=== PATIENT | male | born 1970 | race Caucasian/White ===

== ENCOUNTER 2017-02-13 08:02 | Emergency (ER) | payer OTHER ==
--- NOTE | 2017-02-13 08:17 | C.PDOC ---
History Of Present Illness Patient is 47 y/o male with prior visits for substance abuse, presenting for altered mental status. Patient brought to ED for evaluation by EMS after being found passed out in the backyard of his senior living. No further history was able to be obtained. Time Seen by Provider: 02/13/17 08:06 Chief Complaint (Nursing): Substance Abuse History Per: EMS History/Exam Limitations: clinical condition Onset/Duration Of Symptoms: Mins Current Symptoms Are (Timing): Still Present Suicide/Self Injury Attempted (Context): None Modifying Factor(s): Alcohol (patient smells of alcohol ) Involuntary Hold By: None Recent travel outside of the [place]: No Additional History Per: Prior Records Past Medical History Reviewed: Historical Data, Nursing Documentation, Vital Signs Vital Signs: Last Vital Signs Temp 98.3 F 02/13/17 16:18 Pulse 101 H 02/13/17 16:18 Resp 14 02/13/17 16:18 BP 96/62 L 02/13/17 16:18 Pulse Ox 98 02/13/17 16:18 - Medical History PMH: Arthritis (Left Arm), COPD, Hepatitis, HTN, Hyperthyroidism, Schizophrenia Family History: States: Unknown Family Hx - Social History Hx Tobacco Use: Yes Hx Alcohol Use: Yes Hx Substance Use: No (denies) - Immunization History Hx Tetanus Toxoid Vaccination: No Hx Influenza Vaccination: No Hx Pneumococcal Vaccination: No Review Of Systems Review Of Systems: ROS cannot be obtained secondary to pt's inabilty to answer questions. Physical Exam - Physical Exam Appears: Non-toxic, No Acute Distress, Other (Resting and sleeping comfortably. Patient appears disheveled and strong smell of alcohol. ) Skin: Warm, Dry Head: Atraumatic Eye(s): bilateral: Normal Inspection Oral Mucosa: Moist Neck: Supple Chest: Symmetrical, No Deformity Cardiovascular: Rhythm Regular, No Murmur Respiratory: No Rales, No Rhonchi, No Wheezing, Other (Clear to auscultation bilaterally ) Gastrointestinal/Abdominal: Soft, No Tenderness, No Distention, No Guarding, No Rebound Extremity: Other (amputation to R lower extremity. normal ROM) Neurological/Psych: Other (Patient makes sounds and open eyes to sternal rub. ) ED Course And Treatment - Laboratory Results Result Diagrams: 02/13/17 09:44 02/13/17 09:44 - Radiology CXR: Viewed By Me, Read By Radiologist CXR Interpretation: Yes: Other (Mild pulmonary venous congestion. No focal consolidation.) - CT Scan/US CT HEAD WITHOUT CONTRAST Other Rad Studies (CT/US): Read By Radiologist, Radiology Report Reviewed CT/US Interpretation: FINDINGS: HEMORRHAGE: No intracranial hemorrhage. BRAIN : Isaacs-white matter differentiation is preserved. There is no mass, mass effect or abnormal extra-axial fluid collection. VENTRICLES: The ventricles are normal in size, shape and configuration. CALVARIUM: There is no calvarial fracture or extracranial soft tissue swelling. PARANASAL SINUSES: Predominantly clear. MASTOID AIR CELLS: Predominantly clear. OTHER FINDINGS: None. IMPRESSION: No acute intracranial abnormality. CT Cervical Spine without contrast Other Rad Studies (CT/US): Read By Radiologist, Radiology Report Reviewed CT/US Interpretation: FINDINGS: VERTEBRAE: There is straightening of the cervical spine with loss of normal cervical lordosis. Vertebral alignment is normal. Vertebral height is maintained. There is no acute fracture or traumatic spondylolisthesis. The craniocervical junction is normal. The atlantoaxial joint is normal. DISCS/SPINAL CANAL/NEURAL FORAMINA: There is mild multilevel degenerative disc disease due to combination of disc osteophyte complexes, uncovertebral joint hypertrophy and mild multilevel facet arthropathy , worse at C5-6 with mild right neural foraminal stenosis. No spinal canal stenosis. PARASPINAL SOFT TISSUES: There is no prevertebral soft tissue thickening. The paraspinous soft tissues are normal. OTHER FINDINGS: None. IMPRESSION: No acute fracture or traumatic anterior listhesis. Progress Note: Cervical Spine CT, Head CT, EKG, CXR, and labs were ordered. Medical Decision Making Medical Decision Making: Patient presenting with altered mental status. Likely alcohol abuse, but will get CT head, CT c-spine to r/o intracranial injury. WIll get labs, continually monitor and reeval 10:27AM Alcohol elevated to 416. Other labs grossly normal. EKG shows NSR at 77bpm with normal intervals and no ST changes. Imaging negative for acute process. Will monitor for clinical sobriety 5:49PM Patient is now AAox3. He is ambulating around the ED without issue and tolerating po. He admits to alcohol use. He reports that he wants to go back to his senior living. snf personal came and took patient home. Disposition - Disposition Disposition: HOME/ ROUTINE Disposition Time: 17:49 Condition: GOOD Additional Instructions: Decrease alcohol use. Return to ED if condition worsens. Follow-up with PMD Forms: [employer] (Upper Sorbian) - Clinical Impression Clinical Impression: Alcohol abuse - Scribe Statement The provider has reviewed the documentation as recorded by the Scribe Maryan Roy All medical record entries made by the Michaelibe were at my direction and personally dictated by me. I have reviewed the chart and agree that the record accurately reflects my personal performance of the history, physical exam, medical decision making, and the department course for this patient. I have also personally directed, reviewed, and agree with the discharge instructions and disposition.
--- NOTE | 2017-02-13 08:53 | RAD ---
HISTORY: altered mental status COMPARISON: 01/23/2015. FINDINGS: LUNGS: There is mild pulmonary venous congestion. PLEURA: No significant pleural effusion identified, no pneumothorax apparent. CARDIOVASCULAR: Normal. OSSEOUS STRUCTURES: No significant abnormalities. VISUALIZED UPPER ABDOMEN: Normal. OTHER FINDINGS: None. IMPRESSION: Mild pulmonary venous congestion. No focal consolidation.
--- NOTE | 2017-02-13 09:03 | CT ---
PROCEDURE: CT HEAD WITHOUT CONTRAST. HISTORY: Altered mental status COMPARISON: 05/04/2016. TECHNIQUE: Axial computed tomography images were obtained through the head/brain without intravenous contrast. Radiation dose: Total exam DLP = 1029.49 mGy-cm. This CT exam was performed using one or more of the following dose reduction techniques: Automated exposure control, adjustment of the mA and/or kV according to patient size, and/or use of iterative reconstruction technique. FINDINGS: HEMORRHAGE: No intracranial hemorrhage. BRAIN: Isaacs-white matter differentiation is preserved. There is no mass, mass effect or abnormal extra-axial fluid collection. VENTRICLES: The ventricles are normal in size, shape and configuration. CALVARIUM: There is no calvarial fracture or extracranial soft tissue swelling. PARANASAL SINUSES: Predominantly clear. MASTOID AIR CELLS: Predominantly clear. OTHER FINDINGS: None. IMPRESSION: No acute intracranial abnormality.
--- NOTE | 2017-02-13 09:10 | CT ---
PROCEDURE: CT Cervical Spine without contrast HISTORY: Found down COMPARISON: None available. TECHNIQUE: Axial computed tomography images were obtained of the cervical spine without the use of intravenous contrast. Coronal and sagittal reformatted images were created and reviewed. Radiation dose: Total exam DLP = 529.58 mGy-cm. This CT exam was performed using one or more of the following dose reduction techniques: Automated exposure control, adjustment of the mA and/or kV according to patient size, and/or use of iterative reconstruction technique. FINDINGS: VERTEBRAE: There is straightening of the cervical spine with loss of normal cervical lordosis. Vertebral alignment is normal. Vertebral height is maintained. There is no acute fracture or traumatic spondylolisthesis. The craniocervical junction is normal. The atlantoaxial joint is normal. DISCS/SPINAL CANAL/NEURAL FORAMINA: There is mild multilevel degenerative disc disease due to combination of disc osteophyte complexes, uncovertebral joint hypertrophy and mild multilevel facet arthropathy, worse at C5-6 with mild right neural foraminal stenosis. No spinal canal stenosis. PARASPINAL SOFT TISSUES: There is no prevertebral soft tissue thickening. The paraspinous soft tissues are normal. OTHER FINDINGS: None. IMPRESSION: No acute fracture or traumatic anterior listhesis.
[2017-02-13 09:45] LABS: URINE BILIRUBIN NEGATIVE (NEGATIVE); URINE BLOOD NEGATIVE (NEGATIVE); URINE COLOR Straw (YELLOW); URINE GLUCOSE (UA) NORMAL (Normal); URINE KETONE NEGATIVE (NEGATIVE); URINE LEUKOCYTE ESTERASE NEG Leu/uL (Negative); URINE PROTEIN NEGATIVE (NEGATIVE); URINE UROBILINOGEN NORMAL mg/dL (0.2-1.0); WBC URINE < 1 /hpf (0-5)
[2017-02-13 09:49] LABS: BASO % 0.4 % (0.0-2.0); EOS % 0.5 % (0.0-4.0); HEMATOCRIT 53.3 % (35.0-51.0); LYMPH # 1.3 K/uL (1.0-4.3); LYMPH % 17.1 % (20.0-40.0); MEAN CELL VOLUME 98.3 fL (80.0-94.0); MEAN CORPUSCULAR HEMOGLOBIN 34.2 pg (27.0-31.0); MEAN CORPUSCULAR HGB CONC 34.8 g/dL (33.0-37.0); MEAN PLATELET VOLUME 8.9 fL (7.2-11.7); MONO # 0.5 K/uL (0.0-0.8); MONO % 6.4 % (0.0-10.0); NRBC % 0.1 % (0.0-2.0); RED CELL DISTRIBUTION WIDTH 13.5 % (11.5-14.5); WHITE BLOOD COUNT 7.9 K/uL (4.8-10.8)
[2017-02-13 10:01] LABS: CHLORIDE 102 mmol/L (98-107); SODIUM 139 mmol/L (132-148)
[2017-02-13 10:03] LABS: GFR AFRICAN-AMERICAN > 60
[2017-02-13 10:04] LABS: ALB/GLOB RATIO 1.3 (1.0-2.1); ALKALINE PHOSPHATASE 85 U/L (38-126); ALT/SGPT 60 U/L (21-72); AST/SGOT 43 U/L (17-59); BILIRUBIN,TOTAL 0.5 mg/dL (0.2-1.3); BLOOD UREA NITROGEN 11 mg/dL (9-20); CALCIUM 8.3 mg/dl (8.6-10.4); CARBON DIOXIDE 23 mmol/L (22-30); GLUCOSE,RANDOM 87 mg/dL (75-110); TOTAL PROTEIN 7.5 g/dL (6.3-8.3)
[2017-02-13 10:22] LABS: ALCOHOL SERUM 416 mg/dl (0-10)
[2017-02-13 10:33] LABS: THYROID STIMULATING HORMONE 0.84 mIU/L (0.46-4.68)
--- NOTE | 2017-02-13 12:59 | CARD ---
APPROVED REPORT EKG Measurement Heart [id number] <Conclusion> Normal sinus rhythm Normal ECG
[2017-02-13 18:11] VITALS: BP 134/86; PULSE 98; RESP 20; TEMP 97.8; O2SAT 93
== END 2017-02-13 18:31 | disposition home or self-care (01) ==
LOC: C.ER 08:02
DX: F10.10 Alcohol abuse, uncomplicated (principal); Y90.8 Blood alcohol level of 240 mg/100 ml or more

== ENCOUNTER 2017-09-27 13:34 | Emergency (ER) | payer OTHER ==
--- NOTE | 2017-09-27 15:16 | C.PDOC ---
History Of Present Illness 47-year-old male is brought to the ED by police for medical clearance. Patient resides in a [facility]. Earlier today, patient was standing outside of the ch[facility] while holding fireworks and is brought to the ED for further evaluation and clearance. Patient states he had no intention of lighting the fireworks. He hasd been drinking beer but denies suicidal/homicidal ideation and has no complaints at this time. Time Seen by Provider: 09/27/17 14:23 Chief Complaint (Nursing): Medical Clearance History Per: Patient History/Exam Limitations: no limitations Onset/Duration Of Symptoms: Hrs Current Symptoms Are (Timing): Better Additional History Per: Patient Past Medical History Reviewed: Historical Data, Nursing Documentation, Vital Signs Vital Signs: Last Vital Signs Temp 98.3 F 09/27/17 13:58 Pulse 96 H 09/27/17 13:58 Resp 20 09/27/17 13:58 BP 142/88 09/27/17 13:58 Pulse Ox 94 L 09/27/17 15:23 - Medical History PMH: Arthritis (Left Arm), COPD, Hepatitis, HTN, Hyperlipidemia, Hyperthyroidism , Hypothyroidism, Schizophrenia, Sexually Transmitted Disease (genital warts) Denies: HIV, Seizures Surgical History: No Surg Hx Family History: States: Unknown Family Hx - Social History Hx Tobacco Use: Yes Hx Alcohol Use: Yes Hx Substance Use: No (denies) - Immunization History Hx Tetanus Toxoid Vaccination: No Hx Influenza Vaccination: No Hx Pneumococcal Vaccination: No Review Of Systems Psych: Positive for: Other (medical clearance ) Physical Exam - Physical Exam Appears: Non-toxic, No Acute Distress, Other (visibly intoxicated ) Skin: Normal Color, Warm, Dry Head: Atraumatic, Normacephalic Eye(s): bilateral: PERRL, EOMI, Other (conjunctival injection ) Oral Mucosa: Moist, Other (alcohol on breath ) Neck: Supple Chest: Symmetrical, No Deformity, No Tenderness Cardiovascular: Rhythm Regular Respiratory: Normal Breath Sounds Extremity: Normal ROM Extremity: Right: Other (arm amputation) Neurological/Psych: No Normal Speech (slurred), Other (arousable to touch and verbal stimuli ) ED Course And Treatment - Laboratory Results Lab Interpretation: Normal (ETOH 24) O2 Sat by Pulse Oximetry: 94 Progress Note: labs ordered and reviewed. Case discussed with farmworker [employer], who evaluated the patient at bedside. Patient has been cleared for discharge. Reevaluation Time: 16:26 Reassessment Condition: Improved Disposition Counseled Patient/Family Regarding: Studies Performed - Disposition Disposition: HOME/ ROUTINE Disposition Time: 16:26 Condition: IMPROVED Instructions: Effects of Alcohol on Your Health Forms: [employer] (Vietnamese) - Clinical Impression Clinical Impression: Alcohol abuse, Schizophrenia - Scribe Statement The provider has reviewed the documentation as recorded by the Scribe (Xena Salas) Provider Attestation: All medical record entries made by the Scribe were at my direction and personally dictated by me. I have reviewed the chart and agree that the record accurately reflects my personal performance of the history, physical exam, medical decision making, and the department course for this patient. I have also personally directed, reviewed, and agree with the discharge instructions and disposition.
[2017-09-27 17:15] VITALS: BP 121/78; PULSE 81; RESP 18; TEMP 98; O2SAT 97
== END 2017-09-27 17:13 | disposition home or self-care (01) ==
LOC: C.ER 13:34
DX: F10.10 Alcohol abuse, uncomplicated (principal); Y90.1 Blood alcohol level of 20-39 mg/100 ml; F20.9 Schizophrenia, unspecified

== ENCOUNTER 2018-03-08 07:17 | Emergency (ER) | payer OTHER ==
[2018-03-08 07:26] VITALS: BMI 28.5
--- NOTE | 2018-03-08 07:40 | C.PDOC ---
History Of Present Illness 48 y/o male with history of ETOH abuse brought to ED by EMS status post trip and fall outside. At ED patient admits to drinking ETOH and denies loc, chest pain, nausea, vomiting or any other complaints at this time. - HPI Time Seen by Provider: 03/08/18 07:24 Chief Complaint (Nursing): Trauma History Per: Patient History/Exam Limitations: no limitations Onset/Duration Of Symptoms: Hrs Past Medical History Reviewed: Historical Data, Nursing Documentation, Vital Signs Vital Signs: Last Vital Signs Temp 97.5 F L 03/08/18 07:21 Pulse 85 03/08/18 07:21 Resp 20 03/08/18 07:21 BP 117/72 03/08/18 07:21 Pulse Ox 91 L 03/08/18 07:21 - Medical History PMH: Arthritis (Left Arm), COPD, Hepatitis, HTN, Hyperlipidemia, Hyperthyroidism, Hypothyroidism, Schizophrenia, Sexually Transmitted Disease (genital warts) Surgical History: No Surg Hx Family History: States: No Known Family Hx - Social History Hx Tobacco Use: Yes Hx Alcohol Use: Yes Hx Substance Use: No (denies) - Immunization History Hx Tetanus Toxoid Vaccination: No Hx Influenza Vaccination: No Hx Pneumococcal Vaccination: No Review Of Systems Constitutional: Negative for: Fever, Chills Cardiovascular: Negative for: Chest Pain Gastrointestinal: Negative for: Nausea, Vomiting Skin: Positive for: Bruising (right obit region) Psych: Positive for: Other (ETOH abuse) Physical Exam - Physical Exam Appears: Non-toxic, No Acute Distress Skin: Warm, Dry, No Rash Head: No Abrasion, No Laceration, Other (bruise to right orbital region) Eye(s): bilateral: PERRL, EOMI Oral Mucosa: Moist Neck: Supple Cardiovascular: Rhythm Regular Respiratory: No Rales, No Rhonchi, Wheezing Gastrointestinal/Abdominal: Soft, No Tenderness, No Guarding, No Rebound Extremity: Normal ROM Neurological/Psych: Oriented x3, Normal Speech, Normal Cognition Gait: Unable To Assess ED Course And Treatment O2 Sat by Pulse Oximetry: 91 (RA) Pulse Ox Interpretation: Normal - CT Scan/US No standard instances Other Rad Studies (CT/US): Read By Radiologist, Radiology Report Reviewed CT/US Interpretation: FINDINGS: VERTEBRAE: No fracture. Normal alignment. No destructive bony lesion. DISCS/SPINAL CANAL/NEURAL FORAMINA: There is mild disc space narrowing seen at the C5-C6 level with small marginal anterior osteophyte formation. Additionally, tiny posterior osteophytic ridge disc bulge complex present. . The uncovertebral joints exhibit minimal degenerative squaring more so on the right side. Central canal adequate right exit foramen appears slightly narrowed. The remaining levels exhibit relatively adequate disc height. Small marginal anterior and tiny posterior osteophyte formation noted at the C6-C7 and to a lesser degree C4-C5 levels. PARASPINAL SOFT TISSUES: Prevertebral - paraspinal soft tissues unremarkable. OTHER FINDINGS: None. IMPRESSION: No acute fractures. Minor degenerative spondylosis as detailed above. IMPRESSION: No acute intracranial hemorrhage. Persistent the mild enlargement of the 3rd and lateral ventricles disproportionate to the size of the sulci. Findings could be developmental or possibly mild central volume loss. Progress Note: CT cervical spine w/o contrast, CT head w/o contrast, Alcohol level ordered. Treated with duoneb x 2. ambulating with steady gait. Patient eloped from ED Reassessment Condition: Improved Disposition - Disposition Disposition: ELOPEMENT - ER ONLY Disposition Time: 13:00 Condition: STABLE Forms: [employer] (Kiswahili) - POA Present On Arrival: None - Clinical Impression Clinical Impression: Alcohol abuse, Head injury - PA / [employer] / Resident Statement MD/DO has reviewed & agrees with the documentation as recorded. - Scribe Statement The provider has reviewed the documentation as recorded by the Paris Shaw All medical record entries made by the Paris were at my direction and personally dictated by me. I have reviewed the chart and agree that the record accurately reflects my personal performance of the history, physical exam, medical decision making, and the department course for this patient. I have also personally directed, reviewed, and agree with the discharge instructions and disposition.
[2018-03-08] MEDS ORDERED: Albuterol-Ipratrop 3 mg / 0.5 (3 ml) UD ONE (07:53)
[2018-03-08] MEDS ORDERED: Albuterol-Ipratrop 3 mg / 0.5 (3 ml) UD INH STA (08:00)
--- NOTE | 2018-03-08 09:29 | CT ---
Date of service: 03/08/2018 PROCEDURE: CT HEAD WITHOUT CONTRAST. HISTORY: R/O Bleed COMPARISON: . Comparison made with prior study 02/13/2017. TECHNIQUE: Axial computed tomography images were obtained through the head/brain without intravenous contrast. Radiation dose: Total exam DLP = 1105.62 mGy-cm. This CT exam was performed using one or more of the following dose reduction techniques: Automated exposure control, adjustment of the mA and/or kV according to patient size, and/or use of iterative reconstruction technique. FINDINGS: HEMORRHAGE: No acute parenchymal, subarachnoid or extra-axial hemorrhage. BRAIN: No evidence of large acute infarct. No obvious parenchymal nor extra-axial mass or collection... VENTRICLES: There is persistent mild dilatation of the 3rd and lateral ventricles which could be developmental or possibly mild central volume loss. CALVARIUM: There are no acute calvarial fractures. PARANASAL SINUSES: Unremarkable as visualized. No significant inflammatory changes. MASTOID AIR CELLS: Unremarkable as visualized. No inflammatory changes. OTHER FINDINGS: None. IMPRESSION: No acute intracranial hemorrhage. Persistent the mild enlargement of the 3rd and lateral ventricles disproportionate to the size of the sulci. Findings could be developmental or possibly mild central volume loss.
--- NOTE | 2018-03-08 09:39 | CT ---
Date of service: 03/08/2018 PROCEDURE: CT Cervical Spine without contrast HISTORY: neck pain COMPARISON: No prior study available comparison TECHNIQUE: Axial computed tomography images were obtained of the cervical spine without the use of intravenous contrast. Coronal and sagittal reformatted images were created and reviewed. Radiation dose: Total exam DLP = 499.91 mGy-cm. This CT exam was performed using one or more of the following dose reduction techniques: Automated exposure control, adjustment of the mA and/or kV according to patient size, and/or use of iterative reconstruction technique. FINDINGS: VERTEBRAE: No fracture. Normal alignment. No destructive bony lesion. DISCS/SPINAL CANAL/NEURAL FORAMINA: There is mild disc space narrowing seen at the C5-C6 level with small marginal anterior osteophyte formation. Additionally, tiny posterior osteophytic ridge disc bulge complex present. . The uncovertebral joints exhibit minimal degenerative squaring more so on the right side. Central canal adequate right exit foramen appears slightly narrowed. The remaining levels exhibit relatively adequate disc height. Small marginal anterior and tiny posterior osteophyte formation noted at the C6-C7 and to a lesser degree C4-C5 levels. PARASPINAL SOFT TISSUES: Prevertebral - paraspinal soft tissues unremarkable. OTHER FINDINGS: None. IMPRESSION: No acute fractures. Minor degenerative spondylosis as detailed above.
[2018-03-08 11:51] VITALS: BP 132/88; PULSE 91; RESP 18; TEMP 98.6
[2018-03-08 13:01] VITALS: O2SAT 91
== END 2018-03-08 11:51 | disposition left against medical advice (07) ==
LOC: C.ER 07:17
DX: F10.10 Alcohol abuse, uncomplicated (principal); S09.90XA Unspecified injury of head, initial encounter; W01.0XXA Fall on same level from slipping, tripping and stumbling without subsequent striking against object, initial encounter; F20.9 Schizophrenia, unspecified; E78.5 Hyperlipidemia, unspecified; I10 Essential (primary) hypertension; Z72.0 Tobacco use